=== PATIENT | female | born 1975 | race Caucasian/White ===

== ENCOUNTER 2021-01-17 08:00 | Observation (INO) ==
[2021-01-17] MEDS ORDERED: 0.9 % Sodium Chloride 1,000 ML IVC ONE (08:15)
[2021-01-17 08:40] LABS: Bacteria,Urine Few per hpf (None-Few); Bilirubin,Urine Small (Negative); Blood,Urine Moderate (Negative); Clarity,Urine Turbid (Clear); Color,Urine Orange (Yellow); Glucose,Urine (UA) Normal (Normal); Ketones,Urine 20 mg/dL (Negative); Leukocyte Esterase,Urine Negative (Negative); Mucus,Urine Moderate per lpf (None-Few); Nitrite,Urine Negative (Negative); Protein,Urine >=600 mg/dL (Neg-Trace); Specific Gravity,Urine > 1.030 (1.010-1.025); Squamous Epithelial Cell,Urine Moderate per hpf (None-Few)
[2021-01-17 09:05] LABS: Basophils # 0.1 K/mcL (0.0-0.2); Basophils % 0.2 %; Hematocrit 40.2 % (35.3-44.9); Hemoglobin 13.7 g/dL (11.5-15.4); Immature Granulocytes % 1.1 % (0-4); Lymphocytes # 1.6 K/mcL (0.6-4.6); Lymphocytes % 7.1 %; Mean Corpuscular HGB Conc 34.1 g/dL (31.6-35.5); Mean Corpuscular Hemoglobin 30.3 pg (28.0-33.3); Mean Corpuscular Volume 88.9 fL (83.0-100.0); Mean Platelet Volume 9.5 fL (9.4-12.4); Monocytes # 1.9 K/mcL (0.0-1.3); Monocytes % 8.2 %; Neutrophils # 19.2 K/mcL (1.6-8.9); Platelet Count 266 K/mcL (140-400); Red Blood Count 4.52 M/mcL (3.82-4.97); Red Cell Distribution Width 12.7 % (11.5-14.5); Segmented Neutrophils % 83.4 %
[2021-01-17] MEDS ORDERED: cefTRIAXone 2,000 MG in Water for inj. (sterile) 20 ML IVP ONE (09:13)
[2021-01-17] MEDS ORDERED: *HR* FentaNYL (PF) 100 MCG/2 ML VIAL IVP ONE (09:55)
[2021-01-17 10:28] LABS: Alanine Aminotransferase 34 Units/L (7-52); Albumin 4.2 g/dL (3.5-5.7); Albumin/Globulin Ratio 1.2 (1.1-2.2); Alkaline Phosphatase 55 Units/L (34-104); Amylase 12 Units/L (29-103); Aspartate Amino Transferase 20 Units/L (13-39); BUN/Creatinine Ratio 13 (6-26); Bilirubin,Direct 0.5 mg/dL (0.0-0.2); Bilirubin,Indirect 1.3 mg/dL (0.0-1.0); Bilirubin,Total 1.8 mg/dL (0.3-1.0); Blood Urea Nitrogen 10 mg/dL (6-20); Calcium 9.3 mg/dL (8.6-10.3); Carbon Dioxide 29 mEq/L (23-29); Chloride 95 mEq/L (98-107); Globulin 3.5 g/dL (2.4-3.5); Glucose 145 mg/dL (70-105); Lipase 4 Units/L (11-82); Osmolality,Calculated 278 (280-300); Potassium 2.8 mEq/L (3.5-5.1); Sodium 133 mEq/L (136-145); Total Protein 7.7 g/dL (6.4-8.9); eGFR For African Americans > 60 (> 60); eGFR For Non-African Americans > 60 (> 60)
[2021-01-17] MEDS ORDERED: Lidocaine HCL 4 ML Topical Solution (Laryng-O-Jet Kit Sterile Pak) TP ONE ×2 (10:45→11:13)
[2021-01-17] MEDS ORDERED: Lidocaine -MPF 2% 2 ML VIAL ONE (10:45)
[2021-01-17] MEDS ORDERED: Ondansetron 4 MG/2 ML VIAL ONE (10:45)
[2021-01-17] MEDS ORDERED: *HR* Propofol 200 MG/20 ML VIAL IVP ONE (10:45)
[2021-01-17] MEDS ORDERED: *HR* Rocuronium Bromide 50 MG/5 ML VIAL ONE (10:45)
[2021-01-17] MEDS ORDERED: Famotidine 20 MG/2 ML VIAL IVP ONE (11:06)
[2021-01-17] MEDS ORDERED: *HR* HYDROmorphone (PF) 1 MG/ML SYRINGE IVP PRN (11:06)
[2021-01-17] MEDS ORDERED: *HR* HYDROmorphone 2 MG TABLET PO PRN (11:06)
[2021-01-17] MEDS ORDERED: Scopolamine Patch 1.5 MG PATCH.TD72 TD ONE (11:06)
[2021-01-17] MEDS ORDERED: *HR* OxyCODONE Immed Rel 5 MG TABLET PO PRN (11:06)
[2021-01-17] MEDS ORDERED: *HR* Labetalol 20 MG/4 ML SYRINGE IVP PRN (11:06)
[2021-01-17] MEDS ORDERED: *HR* FentaNYL (PF) 100 MCG/2 ML VIAL ONE ×2 (11:11→12:09)
[2021-01-17] MEDS ORDERED: *HR* Midazolam HCl 2 MG/2 ML VIAL ONE (11:11)
[2021-01-17] MEDS ORDERED: Scopolamine Patch 1.5 MG PATCH.TD72 ONE (11:30)
[2021-01-17] MEDS ORDERED: Acetaminophen IV 0 MG/0 ML BAG IVPB ONE (11:30)
[2021-01-17] MEDS ORDERED: Famotidine 20 MG/2 ML VIAL ONE (11:30)
[2021-01-17] MEDS ORDERED: Lacri-Lube 3.5 GM TUBE ONE (11:40)
[2021-01-17] MEDS ORDERED: Sugammadex Sodium 200 MG/2 ML VIAL IV ONE (12:38)
[2021-01-17] MEDS ORDERED: *HR* HYDROMORPHONE 2 MG/ML VIAL ONE (12:42)
[2021-01-17] MEDS ORDERED: Ondansetron 4 MG/2 ML VIAL IVP PRN (13:33)
[2021-01-17] MEDS: 0.9 % Sodium Chloride 1,000 ML IVC SCH ×2 (13:58→21:57)
[2021-01-17] MEDS: Piperacillin/Tazobactam 3.375 GM in 0.9 % Sodium Chloride Mini Bag 100 ML IVPB SCH ×2 (15:11→22:12)
[2021-01-17] MEDS: *HR* OxyCODONE/APAP 5/325 TABLET PO PRN ×2 (15:24→21:12)
[2021-01-17] MEDS: Ketorolac 15 MG/ML VIAL IVP SCH (17:36)
[2021-01-18] MEDS: Ketorolac 15 MG/ML VIAL IVP SCH ×3 (00:07→12:20)
[2021-01-18] MEDS: 0.9 % Sodium Chloride 1,000 ML IVC SCH (06:02)
[2021-01-18] MEDS: Piperacillin/Tazobactam 3.375 GM in 0.9 % Sodium Chloride Mini Bag 100 ML IVPB SCH (06:08)
[2021-01-18 07:23] LABS: BUN/Creatinine Ratio 20 (6-26); Blood Urea Nitrogen 19 mg/dL (6-20); Calcium 8.2 mg/dL (8.6-10.3); Carbon Dioxide 30 mEq/L (23-29); Chloride 101 mEq/L (98-107); Glucose 122 mg/dL (70-105); Osmolality,Calculated 286 (280-300); Potassium 3.1 mEq/L (3.5-5.1); Sodium 136 mEq/L (136-145); eGFR For African Americans > 60 (> 60); eGFR For Non-African Americans > 60 (> 60)
[2021-01-18 07:31] LABS: Basophils % 0.2 %; Eosinophils % 0.1 %; Hematocrit 33.6 % (35.3-44.9); Immature Granulocytes % 0.4 % (0-4); Lymphocytes # 1.3 K/mcL (0.6-4.6); Lymphocytes % 11.3 %; Mean Corpuscular Hemoglobin 30.6 pg (28.0-33.3); Mean Corpuscular Volume 92.6 fL (83.0-100.0); Mean Platelet Volume 9.9 fL (9.4-12.4); Monocytes # 0.9 K/mcL (0.0-1.3); Monocytes % 7.8 %; Neutrophils # 8.9 K/mcL (1.6-8.9); Platelet Count 183 K/mcL (140-400); Red Blood Count 3.63 M/mcL (3.82-4.97); Segmented Neutrophils % 80.2 %
[2021-01-18 07:32] LABS: Hemoglobin 11.1 g/dL (11.5-15.4); White Blood Count 11.1 K/mcL (4.3-11.1)
[2021-01-18] MEDS: *HR* OxyCODONE/APAP 5/325 TABLET PO PRN (08:06)
[2021-01-18] MEDS ORDERED: amLODIPine 5 MG TABLET PO SCH (09:00)
[2021-01-18] MEDS ORDERED: hydroCHLOROthiazide 25 MG TABLET PO SCH (09:00)
[2021-01-18 11:20] VITALS: BP 107/72
== END 2021-01-18 15:33 | disposition home or self-care (01) ==
LOC: EMEROOARM 08:00 → 3BNU 08:00
PROVIDERS: ADMIT Surgery; ATTEND Surgery